=== PATIENT | female | born 2000 | race Caucasian/White ===

== ENCOUNTER 2020-08-01 23:49 | Emergency (ER) | payer OTHER ==
[~2020-08-01] VITALS: Ht 165.1 cm; Wt 99.8 kg
[2020-08-02] MEDS ORDERED: PEPCID40 MG PO (02:48)
[2020-08-02] MEDS ORDERED: ZOFRAN4 MG PO (02:48)
== END 2020-08-02 03:04 ==
LOC: ER 23:49
DX: S00.83XA Contusion of other part of head, initial encounter (principal); W01.0XXA Fall on same level from slipping, tripping and stumbling without subsequent striking against object, initial encounter; Y93.89 Activity, other specified; Y92.59 Other trade areas as the place of occurrence of the external cause; Y99.8 Other external cause status; Z33.1 Pregnant state, incidental